=== PATIENT | male | born 1965 | race American Indian/Alaskan Native ===

== ENCOUNTER 2017-03-23 10:15 | Emergency (ER) | payer MEDICAID ==
[2017-03-23 10:24] VITALS: BP 161/107; PULSE 100; RESP 18; TEMP 98.1; O2SAT 93
[2017-03-23] MEDS ORDERED: LORazepam 2 MG/ML INJ IVP ONE (10:49)
[2017-03-23] MEDS ORDERED: CHLORDIAZEPOXIDE 25MG PREPK#6 BTL TAKEHOME ONE (10:52)
--- NOTE | 2017-03-23 11:37 | EDPHY ---
H & P Stated Complaint: [facility] sent for ETOH W/D Time Seen by Provider: 03/23/17 10:36 HPI/ROS: CHIEF COMPLAINT: Alcohol withdrawal HISTORY OF PRESENT ILLNESS: The patient is referred to the emergency department with symptoms of alcohol withdrawal. The patient reports his last drink was yesterday. He reportedly was at the [facility] where he developed worsening symptoms of withdrawal and tachycardia. The patient was sent to the emergency department for further evaluation. The patient denies any acute medical complaints such as chest pain, shortness of breath or vomiting. The patient denies additional comorbidities reports taking no regular medications. REVIEW OF SYSTEMS: A comprehensive 10 point review of systems is otherwise negative aside from elements mentioned in the history of present illness. Source: Patient Exam Limitations: No limitations - Personal History Current Tetanus/Diphtheria Vaccine: Yes Tetanus Vaccine Date: 2013 - Medical/Surgical History Hx Asthma: No Hx Chronic Respiratory Disease: No Hx Diabetes: No Hx Cardiac Disease: No Hx Renal Disease: No Hx Cirrhosis: No Hx Alcoholism: Yes Hx HIV/AIDS: No Hx Splenectomy or Spleen Trauma: No Other PMH: Cancer, back issues, multiple knee disclocations, etoh abuse - Social History Smoking Status: Never smoked - Physical Exam Exam: General Appearance: Alert, disheveled, slight tremor otherwise unremarkable exam Eyes: Pupils equal and round no pallor or injection ENT, Mouth: Mucous membranes moist Respiratory: There are no retractions, lungs are clear to auscultation Cardiovascular: Regular rate and rhythm Gastrointestinal: Abdomen is soft and nontender, no masses, bowel sounds normal Neurological: A&O, normal motor function, normal sensory exam, normal cranial nerves Skin: Warm and dry, no rashes Musculoskeletal: Neck is supple nontender Extremities: symmetrical, full range of motion Constitutional: Initial Vital Signs Temperature (C) 36.7 C 03/23/17 10:15 Heart Rate 100 03/23/17 10:15 Respiratory Rate 18 03/23/17 10:15 Blood Pressure 161/107 H 03/23/17 10:15 O2 Sat (%) 93 03/23/17 10:15 O2 Delivery Mode Room Air Allergies/Adverse Reactions: No Known Allergies Allergy (Verified 09/01/16 04:18) Home Medications: Medication Instructions Recorded NK [No Known Home Meds] 08/13/16 Medical Decision Making ED Course/Re-evaluation: The patient presents to the ED with symptoms consistent with mild alcohol withdrawal. The patient had an IV established. He received 1 mg of Ativan. The patient does seem to be an appropriate candidate for outpatient detox with Librium. The patient will be discharged back to the [facility] with a prepack for this medication. The patient has no evidence of significant vital sign abnormalities or delirium terms. His physical examination demonstrates no evidence of an acute infection or traumatic injury. Differential Diagnosis: Differential diagnosis considered includes alcohol withdrawal, alcohol withdrawal seizure, delirium tremens Departure - Departure Disposition: Home, Routine, Self-Care Clinical Impression: Alcohol withdrawal Condition: Good Instructions: Alcohol Withdrawal (ED) Referrals: [facility] [Outside] - As per Instructions
== END 2017-03-23 11:59 | disposition home or self-care (01) ==
LOC: EDUNIT#
DX: F10.239 Alcohol dependence with withdrawal, unspecified (principal)
CPT/HCPCS: 96374; J2060

== ENCOUNTER 2017-04-25 05:05 | Emergency (ER) | payer MEDICAID ==
[2017-04-25] MEDS ORDERED: LORazepam 2 MG/ML INJ ONE (05:06)
[2017-04-25] MEDS ORDERED: CHLORDIAZEPOXIDE 25MG PREPK#6 BTL TAKEHOME ONE (05:08)
--- NOTE | 2017-04-25 05:08 | EDPHY ---
H & P HPI/ROS: Chief Complaint: Alcohol withdrawal HPI: 52-year-old homeless male being brought in from the [facility] in alcohol withdrawal. Patient has been at the [facility] [place] since yesterday afternoon. Does not recall his last drink. He has never had an alcohol withdrawal seizure. Denies any recent illness. No fevers or chills. No nausea or vomiting. No headache. ROS: 10 point Review of Systems is negative except as noted in the HPI. PMH: Chronic back and knee pain, alcoholism Social History: No smoking, heavy alcohol, no recreational drug use, patient is homeless Family History: non-contributory Physical Exam: Gen: Awake, Alert, mildly tremulous HEENT: Nose: no rhinorrhea Eyes: PERRLA, EOMI Mouth: Moist mucosa Neck: Supple, no JVD Chest: nontender, lungs clear to auscultation Heart: S1, S2 normal, no murmur Abd: Soft, non-tender, no guarding Back: no CVA tenderness, no midline tenderness Ext: no edema, non-tender Skin: no rash Neuro: CN II-XII intact, Sensation grossly intact, Strength 5/5 in bilateral upper and lower extremities - Personal History Tetanus Vaccine Date: 2013 - Medical/Surgical History Hx Asthma: No Hx Chronic Respiratory Disease: No Hx Diabetes: No Hx Cardiac Disease: No Hx Renal Disease: No Hx Cirrhosis: No Hx Alcoholism: Yes Hx HIV/AIDS: No Hx Splenectomy or Spleen Trauma: No Other PMH: Cancer, back issues, multiple knee disclocations, etoh abuse - Social History Smoking Status: Never smoked Allergies/Adverse Reactions: No Known Allergies Allergy (Verified 09/01/16 04:18) Home Medications: Medication Instructions Recorded NK [No Known Home Meds] 08/13/16 Medical Decision Making ED Course/Re-evaluation: Patient given 1 mg of Ativan IV and a L of normal saline IV. Patient's feeling improved. Patient is medically cleared to return to the [facility]. Will discharge with a Librium to go pack. Departure - Departure Disposition: Home, Routine, Self-Care Clinical Impression: Alcohol withdrawal Condition: Good Instructions: Alcohol Withdrawal (ED), Chlordiazepoxide (By mouth) Additional Instructions: Please seek help to decrease your alcohol consumption. Referrals: [facility],. [Clinic] - As per Instructions
[2017-04-25] MEDS ORDERED: LORazepam 2 MG/ML INJ IVP ONE (05:09)
[2017-04-25] MEDS ORDERED: NS 1,000 ML IV ONE (05:09)
[2017-04-25 05:52] VITALS: BP 145/100; PULSE 81; RESP 16; TEMP 98.2; O2SAT 96
== END 2017-04-25 05:52 | disposition home or self-care (01) ==
DX: F10.239 Alcohol dependence with withdrawal, unspecified (principal); Z85.9 Personal history of malignant neoplasm, unspecified
CPT/HCPCS: 96374; J2060

== ENCOUNTER 2017-04-26 02:47 | Emergency (ER) | payer MEDICAID ==
[2017-04-26 02:56] VITALS: TEMP 97.5
[2017-04-26 06:02] VITALS: RESP 16
--- NOTE | 2017-04-26 06:40 | EDPHY ---
H & P Stated Complaint: Left lower leg pain Source: Patient, EMS Exam Limitations: Intoxication - Personal History Tetanus Vaccine Date: 2013 - Medical/Surgical History Hx Asthma: No Hx Chronic Respiratory Disease: No Hx Diabetes: No Hx Cardiac Disease: No Hx Renal Disease: No Hx Cirrhosis: No Hx Alcoholism: Yes Hx HIV/AIDS: No Hx Splenectomy or Spleen Trauma: No Other PMH: Cancer, back issues, multiple knee disclocations, etoh abuse. eye surgery - Social History Smoking Status: Never smoked HPI/ROS: HPI The patient presents brought in by ambulance for alcohol intoxication and left leg pain. He says his leg has been hurting for several months, mostly in his knee, he says he has a history of previous dislocation. The pain is achy, does not radiate, and is moderate in severity. He is able to walk without difficulty. He was seen in the emergency room yesterday for alcohol withdrawal and sent to the [facility]. It seems that he has left and resume drinking alcohol.. REVIEW OF SYSTEMS Constitutional: No fever, no chills. Eyes: No discharge. ENT: No sore throat. Cardiovascular: No chest pain, no palpitations. Respiratory: No cough, no shortness of breath. Gastrointestinal: No abdominal pain, no vomiting. Genitourinary: No hematuria. Musculoskeletal: No back pain. Skin: No rashes. Neurological: No headache. PMHx: History of alcohol withdrawal Soc Hx: Homeless, chronic alcohol abuse PHYSICAL General Appearance: Clearly intoxicated, disheveled Eyes: Pupils equal and round no pallor or injection ENT, Mouth: Mucous membranes moist Respiratory: There are no retractions, lungs are clear to auscultation Cardiovascular: Regular rate and rhythm Gastrointestinal: Abdomen is soft and non-tender, no masses, bowel sounds normal Neurological: A&O, moves all extremities Skin: Warm and dry, no rashes Musculoskeletal: Neck is supple non tender Extremities: symmetrical, full range of motion, left knee is nontender, there is no effusion Psychiatric: Patient is awake, there is no agitation (Ashley Lombardo) Constitutional: Initial Vital Signs Temperature (C) 36.4 C 04/26/17 02:54 Heart Rate 78 04/26/17 02:54 Respiratory Rate 20 04/26/17 02:54 Blood Pressure 133/96 H 04/26/17 02:54 O2 Sat (%) 92 04/26/17 02:54 O2 Delivery Mode Room Air Allergies/Adverse Reactions: No Known Allergies Allergy (Verified 04/26/17 02:54) Home Medications: Medication Instructions Recorded NK [No Known Home Meds] 08/13/16 Medical Decision Making ED Course/Re-evaluation: 8am--pt ambulates with assist, still unsteady gait, no c/o knee pain. Will cont to obs. Reassessment-Able to Walk with a steady gait on discharge. (Nika Seals) Differential Diagnosis: This is a 52-year-old male with known alcohol abuse, seen yesterday for alcohol withdrawal who now presents with alcohol intoxication and left knee pain. On exam, he is clearly intoxicated, he does not have any external signs of trauma, he has full range of motion of his knee. Differential diagnosis includes alcohol intoxication, knee sprain, osteoarthritis of the knee, less likely fracture dislocation. The patient became more sober during his time in the emergency room, he was unable to ambulate because of intoxication however. The case will be signed out to the oncoming provider. (Ashley Lombardo) Departure - Departure Disposition: Home, Routine, Self-Care Clinical Impression: Alcohol intoxication Qualifiers: Complication of substance-induced condition: with delirium Qualified Code(s): F10.921 - Alcohol use, unspecified with intoxication delirium Knee pain, left Qualifiers: Chronicity: chronic Qualified Code(s): M25.562 - Pain in left knee Condition: Good Instructions: Alcohol Intoxication (ED) Additional Instructions: Please rest your knee, ice it and keep it elevated. Referrals: [facility] [Outside] - As per Instructions
[2017-04-26 08:33] VITALS: BP 123/80; PULSE 76; O2SAT 95
== END 2017-04-26 08:33 | disposition home or self-care (01) ==
LOC: EDUNIT#
DX: F10.921 Alcohol use, unspecified with intoxication delirium (principal); M25.562 Pain in left knee

== ENCOUNTER 2017-06-09 00:37 | Emergency (ER) | payer MEDICAID ==
--- NOTE | 2017-06-09 05:48 | EDPHY ---
H & P Stated Complaint: pt +etoh, here for med clearance Time Seen by Provider: 06/09/17 04:03 HPI/ROS: Chief Complaint: Alcohol intoxication HPI: A 52-year-old male with a history of chronic alcohol abuse presenting intoxicated with complaints of left knee pain. Patient states he has a history of chronic knee pain was wears a brace. Pain is worse today. He did ambulate into the emergency department for evaluation. Patient admits to drinking significant amounts of alcohol this evening. No falls. Otherwise been in his normal state health. ROS: 10 point Review of Systems is negative except as noted in the HPI. PMH: Chronic knee pain, alcohol abuse Social History: No smoking, heavy daily alcohol, no recreational drug use Family History: non-contributory Physical Exam: Gen: Awake, slow to answer, smells strongly of alcohol HEENT: Nose: no rhinorrhea Eyes: PERRLA, EOMI Mouth: Moist mucosa Neck: Supple, no JVD Chest: nontender, lungs clear to auscultation Heart: S1, S2 normal, no murmur Abd: Soft, non-tender, no guarding Back: no CVA tenderness, no midline tenderness Ext: no edema, left knee is in a the her brace in correctly. He has no tenderness. He is mildly decreased range of motion secondary to pain. No bony tenderness or deformity noted. Skin: no rash Neuro: CN II-XII intact, Sensation grossly intact, Strength 5/5 in bilateral upper and lower extremities - Personal History Tetanus Vaccine Date: 2013 - Medical/Surgical History Hx Asthma: No Hx Chronic Respiratory Disease: No Hx Diabetes: No Hx Cardiac Disease: No Hx Renal Disease: No Hx Cirrhosis: No Hx Alcoholism: Yes Hx HIV/AIDS: No Hx Splenectomy or Spleen Trauma: No Other PMH: Cancer, back issues, multiple knee disclocations, etoh abuse. eye surgery - Social History Smoking Status: Never smoked Constitutional: Initial Vital Signs Heart Rate 88 06/09/17 00:39 Respiratory Rate 20 06/09/17 00:39 Blood Pressure 120/92 H 06/09/17 00:39 O2 Sat (%) 97 06/09/17 00:39 O2 Delivery Mode Room Air Allergies/Adverse Reactions: No Known Allergies Allergy (Verified 06/09/17 00:42) Home Medications: Medication Instructions Recorded NK [No Known Home Meds] 08/13/16 Medical Decision Making ED Course/Re-evaluation: Intoxicated male complaining of knee pain. Patient was unable to ambulate into the department secondary to pain however he did walk in to the waiting room unassisted. Patient will be allowed to metabolize his alcohol and be re- evaluated when more sober. Patient is ambulating unassisted in the emergency department. He is medically cleared for discharge at this time. - Data Points Medications Given: Discontinued Medications Chlordiazepoxide (Librium 25 Mg Prepack#6) [facility] Stop: 06/09/17 06:42 Last Admin: 06/09/17 06:47 Dose: 1 btl Departure - Departure Disposition: Home, Routine, Self-Care Instructions: Chlordiazepoxide/Clidinium (By mouth), Alcohol Intoxication (ED) Additional Instructions: Please seek help to decrease your alcohol consumption. Referrals: NONE *PRIMARY CARE P,. [Primary Care Provider] - As per Instructions
[2017-06-09] MEDS ORDERED: CHLORDIAZEPOXIDE 25MG PREPK#6 BTL TAKEHOME ONE ×2 (06:40→06:41)
[2017-06-09 06:50] VITALS: RESP 16
[2017-06-09 06:51] VITALS: BP 123/65; PULSE 77; TEMP 98.1; O2SAT 97
== END 2017-06-09 06:59 | disposition home or self-care (01) ==
DX: F10.129 Alcohol abuse with intoxication, unspecified (principal); Z85.9 Personal history of malignant neoplasm, unspecified

== ENCOUNTER 2018-05-07 00:28 | Emergency (ER) | payer MEDICAID, OTHER ==
[2018-05-07 00:50] VITALS: BP 116/80
--- NOTE | 2018-05-07 03:35 | EDPHY ---
H & P Stated Complaint: ETPOH fall from Time Seen by Provider: 05/07/18 01:00 HPI/ROS: HPI The patient presents with a fall which occurred at the [facility] where he is currently staying for alcohol intoxication. The patient had an unwitnessed fall and was found near a wall. He does not have any complaints. He has been able to walk. The patient said that he fell backwards and hit the wall and then slid down and is not having any headache, nausea, vomiting, changes in his vision, abdominal pain.. REVIEW OF SYSTEMS Constitutional: No fever, no chills. Eyes: No discharge. ENT: No sore throat. Cardiovascular: No chest pain, no palpitations. Respiratory: No cough, no shortness of breath. Gastrointestinal: No abdominal pain, no vomiting. Genitourinary: No hematuria. Musculoskeletal: No back pain. Skin: No rashes. Neurological: No headache. PMHx: History of alcohol abuse Soc Hx: Homeless, currently at the [facility] PHYSICAL General Appearance: In no acute distress, obviously intoxicated Eyes: Pupils equal and round no pallor or injection ENT, Mouth: Mucous membranes moist Respiratory: There are no retractions, lungs are clear to auscultation Cardiovascular: Regular rate and rhythm Gastrointestinal: Abdomen is soft and non-tender, no masses, bowel sounds normal Neurological: A&O, moves all extremities Skin: Warm and dry, no rashes Musculoskeletal: Neck is supple non tender Extremities: symmetrical, full range of motion Psychiatric: Patient is oriented X 3, there is no agitation Source: Patient, EMS Exam Limitations: Intoxication - Personal History Current Tetanus/Diphtheria Vaccine: Yes Current Tetanus Diphtheria and Acellular Pertussis (TDAP): Yes Tetanus Vaccine Date: 2013 - Medical/Surgical History Hx Asthma: No Hx Chronic Respiratory Disease: No Hx Diabetes: No Hx Cardiac Disease: No Hx Renal Disease: No Hx Cirrhosis: No Hx Alcoholism: Yes Hx HIV/AIDS: No Hx Splenectomy or Spleen Trauma: No Other PMH: Cancer, back issues, multiple knee disclocations, etoh abuse. eye surgery - Social History Smoking Status: Never smoked Constitutional: Initial Vital Signs Temperature (C) 36.3 C 05/07/18 00:30 Heart Rate 80 05/07/18 00:30 Respiratory Rate 16 05/07/18 00:30 Blood Pressure 116/80 05/07/18 00:30 O2 Sat (%) 92 05/07/18 00:30 O2 Delivery Mode Room Air Allergies/Adverse Reactions: No Known Allergies Allergy (Verified 05/07/18 00:31) Home Medications: Medication Instructions Recorded NK [No Known Home Meds] 08/13/16 Medical Decision Making Differential Diagnosis: 53-year-old male, currently intoxicated with alcohol coming from the [facility] for a fall which was unwitnessed. Patient says he did not have any preceding dizziness, lightheadedness, loss of consciousness. He says he was unstable on his feet and slid backwards against a wall and then fell to the ground. He denies hitting his head or any other injuries. On exam, he is intoxicated though has no gross neurologic deficits, no external signs of trauma. He was observed for several hours and was able to walk with a steady gait and was sent back to the [facility]. Differential diagnosis includes alcohol intoxication with ataxia, closed head injury is considered, however patient has no neurologic deficit, alcohol withdrawal. - Data Points Medications Given: Discontinued Medications Chlordiazepoxide (Librium 25 Mg Prepack#6) 1 btl TAKEHOME EDNOW ONE Stop: 05/07/18 03:38 Last Admin: 05/07/18 03:51 Dose: 1 btl Departure - Departure Disposition: Home, Routine, Self-Care Clinical Impression: Alcoholic intoxication Qualifiers: Complication of substance-induced condition: with delirium Qualified Code(s): F10.921 - Alcohol use, unspecified with intoxication delirium Fall Qualifiers: Encounter type: initial encounter Qualified Code(s): W19.XXXA - Unspecified fall, initial encounter Condition: Good Instructions: Chlordiazepoxide/Clidinium (By mouth), Alcohol Intoxication (ED) Referrals: NONE *PRIMARY CARE P,. [Primary Care Provider] - As per Instructions
[2018-05-07] MEDS ORDERED: CHLORDIAZEPOXIDE 25MG PREPK#6 BTL TAKEHOME ONE (03:37)
== END 2018-05-07 04:09 | disposition home or self-care (01) ==
LOC: EDUNIT#
DX: F10.921 Alcohol use, unspecified with intoxication delirium (principal); W01.198A Fall on same level from slipping, tripping and stumbling with subsequent striking against other object, initial encounter; Y92.89 Other specified places as the place of occurrence of the external cause; Y99.8 Other external cause status; Y93.89 Activity, other specified